=== PATIENT | male | born 1995 | race Asian ===

== ENCOUNTER 2017-04-07 18:58 | Emergency (ER) | payer MEDICAID ==
[~2017-04-07] VITALS: Ht 170.2 cm; Wt 49.9 kg
[2017-04-07 19:15] VITALS: BP 104/54
[2017-04-07] MEDS ORDERED: TETRACAINE HCL 0.5% OPTH(EYE) SOLN 4ML LEFTEYE ONE (21:15)
[2017-04-07] MEDS ORDERED: GENTAMICIN OPTH sol 0.3% 5ml LEFTEYE ONE (21:15)
[2017-04-07] MEDS ORDERED: FLUORESCEIN SOD 1 MG TEST STRIP LEFTEYE ONE (21:15)
== END 2017-04-07 21:58 | disposition home or self-care (01) ==
LOC: ER 19:10
DX: H10.9 Unspecified conjunctivitis (principal)